=== PATIENT | male | born 1945 | race Caucasian/White ===

== ENCOUNTER 2016-08-05 09:05 | Day surgery (SDC) | payer OTHER ==
[~2016-08-05 09:05] MED LIST: GABAPENTIN600 MG PO; LISINOPRIL/HYDR1 TA2 PO
--- NOTE | 2016-08-05 11:04 | Provider's Discharge Care Plan ---
Problem, Goal, Plan Problem List 1. S/P colonoscopy Goals: Screening Instructions: Follow up as directed, Take meds as directed
--- NOTE | 2016-08-05 11:04 | Provider's Discharge Care Plan ---
Problem, Goal, Plan Problem List 1. S/P colonoscopy Goals: Screening Instructions: Follow up as directed, Take meds as directed
--- NOTE | 2016-08-05 11:59 | OPERATIVE REPORT ---
DATE OF SURGERY: 08/05/2016 SURGEON: Mehnaz Chan III, MD METALIZING MACHINE OPERATOR: None. PREOPERATIVE DIAGNOSIS: 1. History of stage II adenocarcinoma of the colon 2. Status post laparoscopic-assisted sigmoid colectomy 3. Recent history of bright red blood per rectum POSTOPERATIVE DIAGNOSES: 1. Possible recurrence, anastomosis PROCEDURE PERFORMED: 1. Colonoscopy with anastomotic biopsies ANESTHESIA: TIVA. INDICATIONS: The patient is a 70-year-old male who is status post laparoscopic- assisted sigmoid resection for adenocarcinoma of the sigmoid colon in 2012. Pathology revealed a stage II tumor. The patient left the area to live in [place]. He has not had a colonoscopy since his surgery. The patient admits to recent bright red blood per rectum on the toilet paper and the toilet bowl. SURGICAL FINDINGS: Normal-appearing cecum, ascending, transverse, and descending colon. At the anastomosis, the patient had friable hyperemic area at the area of anastomosis. The rectal vault appeared grossly normal. SURGICAL TECHNIQUE: The patient was brought to the operating room and placed in the left lateral decubitus position, where he was administered TIVA and monitored closely by anesthesia. After proper anesthesia had taken effect, a digital rectal examination revealed no masses or stenosis. This was followed by the passage of a fiberoptic video flexible Olympus colonoscope which, with some difficulty secondary to the prep, negotiated to the cecum. The cecum was identified by anatomical landmarks and anterior abdominal wall ballottement. On withdrawing the scope, the aforementioned findings noted. Multiple biopsies were obtained of the area of the anastomosis. The scope was withdrawn, retroflexed, good view of the rectal vault obtained. No other pathology identified. The scope was completely withdrawn. The patient tolerated the procedure well and was transferred to the recovery room in stable condition. There were no intraoperative or anesthetic complications.
[2016-08-21] MEDS ORDERED: ZZZQUIL25 MG PO (17:12)
== END 2016-08-05 13:20 | disposition home or self-care (01) ==
LOC: OR SRH 09:05
PROVIDERS: Specialist
PROC: 0DBN8ZX Excision of Sigmoid Colon, Via Natural or Artificial Opening Endoscopic, Diagnostic (ICD-10-PCS; principal; 2016-08-05 11:30)
DX: Z08 Encounter for follow-up examination after completed treatment for malignant neoplasm (principal); C18.7 Malignant neoplasm of sigmoid colon; Z90.49 Acquired absence of other specified parts of digestive tract; I10 Essential (primary) hypertension
CPT/HCPCS: 29229; 50004; 60001; 82944; 83526

== ENCOUNTER 2016-08-20 09:41 | Outpatient (CLI) | payer OTHER ==
--- NOTE | 2016-08-20 10:42 | DIAGNOSTIC IMAGING REPORT ---
PROCEDURE: XR CHEST 2 VIEW INDICATION: PRE OP TECHNIQUE: PA and lateral views. COMPARISON: Chest 12/08/2015 FINDINGS: Lungs are clear. Heart and pulmonary vasculature are normal. Thorax is normal. Hiatal hernia. IMPRESSION: 1. No acute disease
--- NOTE | 2016-08-20 12:13 | DIAGNOSTIC IMAGING REPORT ---
PROCEDURE: CT ABD/PELVIS WITH CONTRAST CLINICAL INDICATION: RECURRENT COLON CA, follow-up TECHNIQUE: 125 ml of Isovue 300 were injected intravenously and axial images were obtained of the entire abdomen and pelvis with sagittal and coronal reformations. COMPARISON: CT abdomen/pelvis 11/30/2012 FINDINGS: ABDOMEN: Lung base are clear. Heart size is normal. Normal liver without evidence of metastatic disease. Suspect 2.5 cm gallstone. No biliary distention or inflammatory changes. Pancreas, adrenal glands and spleen are unremarkable. Multiple bilateral renal cysts. Mildly tortuous aorta. Moderate stool. Stable large hiatal hernia. PELVIS: Normal appendix. Mildly enlarged prostate. Normal bladder. No free fluid. Bilateral L5 spondylolysis with grade 1 L5-S1 anterolisthesis and severe disc space narrowing Midsigmoid colon surgical changes with a 4.5 cm long segment of circumferential wall thickening. There is a new 2.8 cm soft tissue mass with central necrosis posterior to the bladder and just distal to the surgical site suggestive of a lymph node. There are several additional new adjacent lymph nodes measuring up to 2 cm. IMPRESSION: 1. Mid sigmoid surgical changes within a 4.5 cm long segment of circumferential wall thickening associated with multiple enlarged lymph nodes (2.8 cm). Findings are highly suspicious for tumor recurrence. 2. No evidence of distant metastases 3. Large hiatal hernia 4. Suspect 2.5 cm gallstone. Recommend ultrasound. 5. Bilateral renal cysts 6. Results discussed with Dr. Chan All CT scans at this facility use dose modulation, iterative reconstruction, and/or weight-based dosing when appropriate to reduce radiation dose to as low as reasonably achievable.
[2016-08-21] MEDS ORDERED: ZZZQUIL25 MG PO (17:12)
== END 2016-08-20 23:00 ==
LOC: CT SRH 09:41
DX: Z01.818 Encounter for other preprocedural examination (principal); C18.9 Malignant neoplasm of colon, unspecified; K44.9 Diaphragmatic hernia without obstruction or gangrene; R59.9 Enlarged lymph nodes, unspecified; N28.1 Cyst of kidney, acquired

== ENCOUNTER 2016-08-23 16:17 | Outpatient (CLI) | payer OTHER ==
[~2016-08-23 16:17] MED LIST changes: +ZZZQUIL25 MG PO
== END 2016-08-23 23:00 ==
LOC: LAB SRH 16:17
DX: C18.9 Malignant neoplasm of colon, unspecified (principal)
CPT/HCPCS: 90001; 90074; 90100; 90155; 91004; 91544; 93005; 95059

== ENCOUNTER 2016-08-26 06:09 | Inpatient (IN) | payer OTHER ==
[~2016-08-26] VITALS: Ht 180.3 cm; Wt 136.9 kg
[2016-08-26] VITALS (8 sets, daily range): BP systolic 124–142; BP diastolic 61–78
--- NOTE | 2016-08-26 15:02 | OPERATIVE REPORT ---
DATE OF SURGERY: 08/26/2016 SURGEON: Mehnaz Chan III, MD BIOINFORMATICS SOFTWARE ENGINEER: Kris Rider MD PREOPERATIVE DIAGNOSIS: 1. Recurrent sigmoid adenocarcinoma POSTOPERATIVE DIAGNOSIS: 1. Recurrent sigmoid adenocarcinoma PROCEDURE PERFORMED: 1. Laparoscopic-assisted sigmoid resection, conversion to open low anterior resection ANESTHESIA: General endotracheal. ESTIMATED BLOOD LOSS: Approximately 200 mL blood. URINE OUTPUT: 125 mL. FLUIDS: 3600 mL lactated Ringer's, 1500 mL of normal saline, 1 unit packed red blood cells, 1 unit of FFP. INDICATIONS: The patient is a 70-year-old male, in 2012, underwent a laparoscopically-assisted sigmoid resection for a stage II, T4 N0 M0 adenocarcinoma of the sigmoid. The patient was lost to followup for 3 years, having left the state. Upon returning, he was scheduled for surveillance colonoscopy. He was asymptomatic. He was noted to have recurrence at the area of the suspected anastomosis. According to pathology, this was a recurrent adenocarcinoma, in spite of the fact that the margins of the original specimen were clear. SURGICAL FINDINGS: The patient was noted to have adhesions of the sigmoid to the pelvic side wall and abdominal lateral side wall, which was expected. However, the colon was very, very thickened distal to the tumor, at the site of the rectum. The patient was noted to have a puckering externally of the sigmoid, and there appeared to be a hard nodule measuring approximately 2 x 2 cm distal to the site of recurrence. SURGICAL TECHNIQUE: The patient was brought to the operating room and placed in the dorsal supine position, where he underwent general endotracheal anesthesia by the anesthesiology department. After proper anesthesia had taken effect, a Rubin catheter was placed to decompress the bladder, and he was placed in low lithotomy position. A nasogastric tube was placed to decompress the stomach. The patient's abdomen was prepped using Betadine and draped in a sterile fashion. A supraumbilical incision was made and carried down through skin and subcutaneous tissue. A Veress needle was inserted through this site, into the abdominal cavity and, after ascertaining its appropriate position with suction irrigation, a pneumoperitoneum obtained using CO2 insufflation to approximately 14-15 mmHg pressure. Once this pressure was reached, the Veress needle was removed and replaced with a 10 mm trocar. The trocar removed, leaving the sleeve behind, through which a laparoscopic video camera was introduced into the abdominal cavity. Under direct visualization, a 12 mm trocar was placed in the right lower quadrant and a separate 5 mm trocar was placed in the right mid abdomen; a separate 10 mm trocar was placed in the left anterior mid abdomen. Each entered the abdominal cavity under direct visualization. Inspection of the pelvis revealed the aforementioned findings. The sigmoid was carefully dissected free off the pelvic sidewall and the pelvic brim using a combination of laparoscopic hot Metzenbaum scissors and the Thunderbeat. We also mobilized the rectum off the underlying surface of the bladder. This nodule was one that was noted distal to our puckering of the specimen. Once completely freed, we were able to visualize the rectum distally. Further mobilization of the sigmoid was achieved using the Thunderbeat and blunt dissection. In the process, we were able to identify the ureter. The ureter was pushed away from the specimen, which had encased itself within the fat of the mesocolon. We were able to create our rent in the mesocolon using the Thunderbeat, proximal to our tumor site. An Endo-KIERSTEN stapler was placed across the descending colon, fired and dividing it. The mesocolon was then taken down using the Thunderbeat. In the process, we were able to identify at least 1 large lymph node. Dissection continued down into the pelvis laterally, both on the right and the left, and posteriorly. However, it became quite obvious that the rectum was very thickened, and we felt that a stapler could not be placed across and fired safely. We then converted to a GelPort hand assist by making an incision in the inferior portion of the umbilicus, towards the pubis. The peritoneal cavity was entered, being careful to avoid the underlying abdominal contents. A GelPort was placed in the wound. I was able to then introduce my hand through the GelPort and into the pelvis and palpate the rectum. In spite of blunt dissection and use of the Thunderbeat under direct visualization, we could not get much beyond onto the rectum at a point that was soft enough and thin enough to place our stapler. It was decided at this point to go open. The GelPort was removed from the abdominal cavity. That incision was extended towards the pubis and up just above the umbilicus to join our supraumbilical trocar site. The peritoneal cavity was entered, being careful to avoid injury to the underlying abdominal contents. Self-retaining abdominal wall retractors was placed in the wound, and our dissection continued down in the pelvis as well. In the process, we got into presacral bleeding, which was controlled using pressure and electrocautery using the Thunderbeat, and thrombin and Gelfoam. We also encountered bleeding from a dilated superior rectal artery, which necessitated placing [id number] Prolene sutures to control. Once we were able to control the bleeding, our attention was then turned to the rectum. We were able to place 2 bowel clamps, one from the right, one from the left, and then transect the rectosigmoid using sharp dissection. the rectal mucosa was then approximated using [id number] Prolene suture. The tissue was just too thick to accept a stapling device. The specimen handed off the field. The descending colon was brought up through the wound. The purse-renée apparatus was applied and 2-0 Prolene suture was used as a pursestring. Staple line was transected. The pursestring device was removed. A 31 mm anvil was introduced into the colon and the pursestring suture tied. At this point, Dr. Rider went below, dilated the rectum to 31 mm, placed the EEA stapler through the wall of the rectum. We connected the anvil after placing a piece of MatriStem graft around the posterior wall of our staple line. The stapler was fired and withdrawn. It had 2 concentric, intact donuts of serosa muscularis and mucosa. The ACell MatriStem graft had been placed about the staple line to reinforce our staple line Dr. Rider insufflated the rectum with air. There was no leak visible with the staple line underneath a pool of normal saline. The air was then evacuated from the rectum. The pool of normal saline was suctioned out. The wound was irrigated copiously with warm normal saline and antibiotic solution and the irrigant suctioned out. Hemostasis assured. The midline was closed using running #1 Maxon. The subcutaneous tissue was irrigated with warm normal saline and antibiotic solution and the skin approximated using skin ayush. A sterile pressure occlusive dressing was placed over the site. The patient had an abdominal binder placed. The patient was then extubated and transferred to the recovery room in stable condition. There were no intraoperative or anesthetic complications.
[2016-08-27 02:38] VITALS: BP 124/77
[2016-08-27 06:29] VITALS: BP 137/64
[2016-08-27 11:08] VITALS: BP 127/77
[2016-08-27 14:10] VITALS: BP 121/76
[2016-08-27 18:10] VITALS: BP 126/70
[2016-08-27 23:02] VITALS: BP 130/74
[2016-08-28 03:42] VITALS: BP 136/79
[2016-08-28 06:42] VITALS: BP 139/87
[2016-08-28 10:26] VITALS: BP 134/83
[2016-08-28 14:48] VITALS: BP 145/80
[2016-08-28 18:05] VITALS: BP 149/82
[2016-08-28 22:38] VITALS: BP 153/85
[2016-08-29 02:13] VITALS: BP 165/70
[2016-08-29 06:13] VITALS: BP 145/92
[2016-08-29 10:27] VITALS: BP 127/84
[2016-08-29 14:20] VITALS: BP 139/82
[2016-08-29 18:20] VITALS: BP 155/65
[2016-08-29 22:28] VITALS: BP 140/79
[2016-08-30 03:23] VITALS: BP 158/85
[2016-08-30 06:52] VITALS: BP 147/97
[2016-08-30] MEDS ORDERED: HYCET1 ML PO (07:10)
[2016-08-30] MEDS ORDERED: COLACE100 MG PO (07:11)
--- NOTE | 2016-08-30 07:12 | Provider's Discharge Care Plan ---
Problem, Goal, Plan Problem List 1. S/P LOW ANTERIOR RESECTION FOR RECURRENT ADENOCARCINOMA OF THE SIGMOID Goals: Improve disease control, Therapeutic intervention Instructions: Follow up as directed, Take meds as directed
--- NOTE | 2016-08-30 07:33 | DISCHARGE SUMMARY ---
ADMIT DATE: 08/26/2016 DISCHARGE DATE: 08/30/2016 ADMISSION DIAGNOSIS: 1. Recurrent adenocarcinoma of the sigmoid DISCHARGE DIAGNOSES: 1. Recurrent stage III, T3N2 adenocarcinoma of the sigmoid PROCEDURE PERFORMED: 1. Laparoscopic conversion to open low anterior resection BRIEF HISTORY: The patient is a 70-year-old male who underwent laparoscopic- assisted sigmoid resection in 2012 for stage II, T4N0M0 adenocarcinoma of the colon. He was lost to followup, having moved to [place]. On his return, he underwent his first colonoscopy 08/05/2016. He was noted to have recurrence at his anastomosis. CT of his abdomen showed no evidence of metastatic disease to the liver; however, he was noted to have several large nodes in the area of a 4 cm segment of his sigmoid consistent with recurrence. The patient was admitted to [facility] for surgery. HOSPITAL COURSE: The patient admitted to [facility], taken to the operating room where attempted laparoscopically assisted low anterior resection was unsuccessful secondary to the thickness of the rectum and inability to have a stapler properly placed across the rectum. This was then converted to open and still a stapler could not be passed safely across the rectum and it had to be transected and hand sewn shut with a primary stapled end-to-end anastomosis. His postoperative course was unremarkable. It should be noted that in the operating room he received a transfusion postoperative day 1. White count 11.3, hemoglobin and hematocrit 8.7 and 27.0 respectively. He remained stable, on postoperative day 2, he was passing flatus, ambulatory. His nasogastric tube and Rubin were discontinued. Postoperative day #3, his white count was 6.7, hemoglobin and hematocrit 8.6 and 27.4 respectively. He appeared to be stable. He remained comfortable and postoperative day 4, he was passing flatus, but had not had a bowel movement , he was feeling very well. He was ambulatory, no shortness of breath or chest pain. Blood pressure 158/85, pulse 75, respirations 18, temperature 98, room air O2 saturation was 94%. His abdomen was nondistended. Positive bowel sounds. His incision site was clean with no evidence of cellulitis. It was decided is discharge him home on a clear liquid diet. Once he was having bowel movements, he could advance to a full liquid diet. He would follow up at [facility] in 1 week. DISCHARGE INSTRUCTIONS/MEDICATIONS: The patient was discharged home on his gabapentin 500 mg 1 tablet in the morning and 2 tablets at bedtime. Lisinopril/ hydrochlorothiazide 20/25 tablets 1 daily and Hycet elixir 1 tablespoon q.4 hours p.r.n. pain.
--- NOTE | 2016-08-30 07:33 | DISCHARGE SUMMARY ---
ADMIT DATE: 08/26/2016 DISCHARGE DATE: 08/30/2016 ADMISSION DIAGNOSIS: 1. Recurrent adenocarcinoma of the sigmoid DISCHARGE DIAGNOSES: 1. Recurrent stage III, T3N2 adenocarcinoma of the sigmoid PROCEDURE PERFORMED: 1. Laparoscopic conversion to open low anterior resection BRIEF HISTORY: The patient is a 70-year-old male who underwent laparoscopic- assisted sigmoid resection in 2012 for stage II, T4N0M0 adenocarcinoma of the colon. He was lost to followup, having moved to [place]. On his return, he underwent his first colonoscopy 08/05/2016. He was noted to have recurrence at his anastomosis. CT of his abdomen showed no evidence of metastatic disease to the liver; however, he was noted to have several large nodes in the area of a 4 cm segment of his sigmoid consistent with recurrence. The patient was admitted to [facility] for surgery. HOSPITAL COURSE: The patient admitted to [facility], taken to the operating room where attempted laparoscopically assisted low anterior resection was unsuccessful secondary to the thickness of the rectum and inability to have a stapler properly placed across the rectum. This was then converted to open and still a stapler could not be passed safely across the rectum and it had to be transected and hand sewn shut with a primary stapled end-to-end anastomosis. His postoperative course was unremarkable. It should be noted that in the operating room he received a transfusion postoperative day 1. White count 11.3, hemoglobin and hematocrit 8.7 and 27.0 respectively. He remained stable, on postoperative day 2, he was passing flatus, ambulatory. His nasogastric tube and Rubin were discontinued. Postoperative day #3, his white count was 6.7, hemoglobin and hematocrit 8.6 and 27.4 respectively. He appeared to be stable. He remained comfortable and postoperative day 4, he was passing flatus, but had not had a bowel movement , he was feeling very well. He was ambulatory, no shortness of breath or chest pain. Blood pressure 158/85, pulse 75, respirations 18, temperature 98, room air O2 saturation was 94%. His abdomen was nondistended. Positive bowel sounds. His incision site was clean with no evidence of cellulitis. It was decided is discharge him home on a clear liquid diet. Once he was having bowel movements, he could advance to a full liquid diet. He would follow up at [facility] in 1 week. DISCHARGE INSTRUCTIONS/MEDICATIONS: The patient was discharged home on his gabapentin 500 mg 1 tablet in the morning and 2 tablets at bedtime. Lisinopril/ hydrochlorothiazide 20/25 tablets 1 daily and Hycet elixir 1 tablespoon q.4 hours p.r.n. pain.
== END 2016-08-30 10:15 | disposition home or self-care (01) | DRG 330 ==
LOC: ACUTE2 SRH 06:09 → SCU SRH 06:09 → U SRH 07:30 → ACUTE2 SRH 13:41
PROVIDERS: ADMIT Specialist
PROC: 0DU Gastrointestinal System, Supplement (ICD-10-PCS; principal; 2016-08-26 07:30)
PROC: 0WJG4ZZ Inspection of Peritoneal Cavity, Percutaneous Endoscopic Approach (ICD-10-PCS; principal; 2016-08-26 07:30)
PROC: 0DTN0ZZ Resection of Sigmoid Colon, Open Approach (ICD-10-PCS; principal; 2016-08-26 07:30)
PROC: 30233N1 Transfusion of Nonautologous Red Blood Cells into Peripheral Vein, Percutaneous Approach (ICD-10-PCS; 2016-08-26 07:30)
DX: C18.7 Malignant neoplasm of sigmoid colon (principal); K92.1 Melena; C77.2 Secondary and unspecified malignant neoplasm of intra-abdominal lymph nodes; C79.89 Secondary malignant neoplasm of other specified sites; Z90.49 Acquired absence of other specified parts of digestive tract
CPT/HCPCS: 50002; 60001; 70002; 80102; 80202; 80212; 80248; 82134; 82320; 82669; 82723; 82794; 82897; 83197; 83364; 83475; 83526; 83587; 83919; 83982; 84038; 84041; 84344; 84515; 84531; 84532; 90001; 90047; 90074; 90100; 90155; 91004; 91162; 91163; 91544; 91556; 93005; 94001; 94050; 94060; 95059

== ENCOUNTER 2016-09-12 10:08 | Day surgery (SDC) | payer OTHER ==
[~2016-09-12] VITALS: Ht 177.8 cm; Wt 136.5 kg
[~2016-09-12 10:08] MED LIST changes: +COLACE100 MG PO; +HYCET1 ML PO
[2016-09-12] MEDS ORDERED: HYCET1 ML PO (12:45)
--- NOTE | 2016-09-12 12:47 | Provider's Discharge Care Plan ---
Problem, Goal, Plan Problem List 1. S/P PORT-A-CATH PLACEMENT Goals: Improve disease control Instructions: Follow up as directed, Take meds as directed
--- NOTE | 2016-09-12 12:47 | Provider's Discharge Care Plan ---
Problem, Goal, Plan Problem List 1. S/P PORT-A-CATH PLACEMENT Goals: Improve disease control Instructions: Follow up as directed, Take meds as directed
--- NOTE | 2016-09-12 13:58 | DIAGNOSTIC IMAGING REPORT ---
PROCEDURE: XR PICC/PORT PLACEMENT W/C-ARM INDICATION: VENOUS INSUFFICIENCY, COLON CANCER TECHNIQUE: C-arm fluoroscopy provided to Dr. Chan for Port-A-Cath placement Fluoroscopy time 1.09-minute 39.1 mGy). COMPARISON: None. FINDINGS: AP and oblique C-arm views. The tip of the Port-A-Cath is in the superior vena cava. IMPRESSION: 1. C-arm fluoroscopy for Port-A-Cath place (performed by Dr. Chan
--- NOTE | 2016-09-12 14:03 | DIAGNOSTIC IMAGING REPORT ---
PROCEDURE: XR CHEST 1 VIEW INDICATION: VENOUS INSUFFICIENCY, COLON CANCER TECHNIQUE: Portable AP view 01:56 p.m. COMPARISON: Chest 08/20/2016 FINDINGS: Port-A-Cath is in good position. The tip is in the SVC. There is no pneumothorax. Lungs are clear. Hiatal hernia. IMPRESSION: 1. Port-A-Cath in good position. No pneumothorax.
--- NOTE | 2016-09-12 14:07 | OPERATIVE REPORT ---
DATE OF SURGERY: 09/12/2016 SURGEON: Mehnaz Chan III, MD PEELER OPERATOR: None. PREOPERATIVE DIAGNOSIS: 1. Recurrent adenocarcinoma of the colon POSTOPERATIVE DIAGNOSIS: 1. Recurrent adenocarcinoma of the colon PROCEDURES PERFORMED: 1. Left subclavian percutaneous access for PowerPort reservoir placement ANESTHESIA: General endotracheal anesthesia. ESTIMATED BLOOD LOSS: Minimal. FLUIDS: Approximately 300 mL of lactated Ringers. PATHOLOGY SPECIMEN: None. Device left behind: PowerPort reservoir and catheter. INDICATIONS: The patient is a 70-year-old male with recurrent stage III adenocarcinoma of the sigmoid, requiring chemotherapy and venous access scheduled for Port-A-Cath placement. SURGICAL FINDINGS: Tip of catheter at the junction of superior vena cava and innominate. SURGICAL TECHNIQUE: The patient was brought to the operating room and placed in the dorsal supine position, where he underwent general endotracheal anesthesia by the anesthesiology department. After proper anesthesia had taken effect, the patient's left neck, upper chest and supraclavicular region were prepped using Betadine and draped in a sterile fashion. A site was selected in the lateral one-third 3 fingerbreadths below the clavicle, infiltrated using local anesthetic, after which a needle was introduced into this region and getting good blood return accessing the subclavian vein. The syringe was removed from the needle and through the needle, a floppy tipped J-wire was placed under fluoroscopic guidance into the ventricle on the right. The upper chest was infiltrated using local anesthetic. A curvilinear incision was made, carried down through skin and subcutaneous tissue using electrocautery for hemostasis. A pocket was established using electrocautery and blunt dissection. It was through the subcutaneous tissue that a metal probe was passed and brought out through the exit site of our wire. Silastic catheter was then attached to this metal probe and withdrawn through the subcutaneous tissue. Over the wire, an introducer peel-away sheath was passed under fluoroscopic guidance. Once in appropriate position, the wire and the introducer were withdrawn, leaving the peel-away catheter in place. Through the peel-away catheter, the Silastic catheter was passed into the right ventricle. The peel-away catheter removed/withdrawn. Under fluoroscopic guidance, the Silastic catheter was withdrawn to approximately the superior vena cava and innominate, trimmed to length and attached to a heparin-filled reservoir. The reservoir was then placed in its pocket and secured using 3-0 Polysorb interrupted suture. Hemostasis assured. The skin was approximated using 4-0 subdermal Polysorb and Steri-Strips. A sterile pressure occlusive dressing was placed over the site. The patient tolerated the procedure well, extubated and transferred to the recovery room in stable condition. There were no intraoperative or anesthetic complications.
[2016-09-12 14:49] VITALS: BP 119/73
== END 2016-09-12 15:22 | disposition home or self-care (01) ==
LOC: OR SRH 10:08 → SCU SRH 10:16 → OR SRH 12:00
PROVIDERS: Specialist
PROC: B5181ZA Fluoroscopy of Superior Vena Cava using Low Osmolar Contrast, Guidance (ICD-10-PCS; principal; 2016-09-12 12:00)
PROC: 02HV33Z Insertion of Infusion Device into Superior Vena Cava, Percutaneous Approach (ICD-10-PCS; principal; 2016-09-12 12:00)
DX: C18.9 Malignant neoplasm of colon, unspecified (principal); I10 Essential (primary) hypertension